=== PATIENT | male | born 1985 | race Caucasian/White ===

== ENCOUNTER 2018-09-26 12:15 | Emergency (ER) | payer OTHER, BC ==
[2018-09-26 12:44] VITALS: BP 117/82; PULSE 87; RESP 18; TEMP 98
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
== END 2018-09-26 14:40 | disposition home or self-care (01) ==
LOC: EC 12:15
DX: Z04.1 Encounter for examination and observation following transport accident (principal); V60.5XXA Driver of heavy transport vehicle injured in collision with pedestrian or animal in traffic accident, initial encounter; Y92.410 Unspecified street and highway as the place of occurrence of the external cause
CPT/HCPCS: 99284